=== PATIENT | female | born 1990 | race Two or more races ===

== ENCOUNTER 2017-12-02 07:35 | Emergency (ER) | payer SELFPAY ==
[~2017-12-02] VITALS: Ht 162.6 cm; Wt 91.0 kg
[2017-12-02] MEDS ORDERED: DIPHENHYDRAMINE 50 MG/ML, 1ML IVPush ONE (08:00)
[2017-12-02] MEDS ORDERED: SODIUM CHLORIDE 0.9% 1,000ML IVBOLUS ONE (08:00)
[2017-12-02] MEDS ORDERED: KETOROLAC 30 MG/1 ML IVPush ONE (08:00)
[2017-12-02] MEDS ORDERED: SODIUM CHLORIDE FLUSH 10ML SYR IVF ONE (08:00)
[2017-12-02] MEDS ORDERED: METOCLOPRAMIDE 5 MG/ML, 2ML IVPush ONE (08:00)
[2017-12-02] MEDS ORDERED: KETOROLAC 30 MG/1 ML ONE (08:19)
[2017-12-02] MEDS ORDERED: DIPHENHYDRAMINE 50 MG/ML, 1ML ONE (08:19)
[2017-12-02] MEDS ORDERED: METOCLOPRAMIDE 5 MG/ML, 2ML ONE (08:19)
[2017-12-02 09:50] VITALS: BP 116/72
== END 2017-12-02 09:52 | disposition home or self-care (01) ==
LOC: ED 09:19
DX: R51 Headache (principal); Z87.891 Personal history of nicotine dependence
CPT/HCPCS: 93005; 96361; 96374; 96375; 99284; J1200; J1885; J2765; J7030